=== PATIENT | female | born 1985 | race American Indian/Alaskan Native ===

== ENCOUNTER 2018-07-19 18:28 | Outpatient (CLI) | payer MEDICAID ==
[2018-07-19 19:42] LABS: Bilirubin,Urine NEG (Negative); Blood,Urine NEG (Negative); Color,Urine Straw (Yellow); Protein,Urine <15 mg/dL mg/dL (Negative); Urobilinogen,Urine < 2.0 mg/dL (<2.0)
[2018-07-19 20:00] LABS: Hematocrit 27.3 % (30.3-42.9); Hemoglobin 9.2 gm/dl (10.1-14.3); Mean Corpuscular HGB Conc 34 % (30-34); Mean Corpuscular Volume 81 fl (79-97); Platelet Count 262 K/mm3 (140-440); Red Blood Count 3.39 M/mm3 (3.65-5.03); Red Cell Distribution Width 15.8 % (13.2-15.2)
[2018-07-19] MEDS ORDERED: LACTATED RINGERS 500 ML IV ONE (20:00)
[2018-07-19 20:30] LABS: Alanine Aminotransferase 13 units/L (7-56); Uric Acid 4.5 mg/dL (3.5-7.6)
[2018-07-19 20:41] VITALS: BP 154/84
[2018-07-19] MEDS ORDERED: TYLENOL PO ONE (21:46)
[2018-07-19] MEDS ORDERED: NORMODYNE PO ONE (21:49)
== END 2018-07-19 21:20 | disposition home or self-care (01) ==
LOC: TRG 18:28
PROVIDERS: ATTEND Obstetrics & Gynecology
DX: O47.03 False labor before 37 completed weeks of gestation, third trimester (principal); Z3A.36 36 weeks gestation of pregnancy; Z87.891 Personal history of nicotine dependence
CPT/HCPCS: 36415; 59025; 81001; 82565; 83615; 84450; 84460; 84550; 85027

== ENCOUNTER 2018-08-07 20:13 | Inpatient (IN) | payer MEDICAID ==
[2018-08-07] MEDS ORDERED: CERVIDIL VG ONE (22:39)
[2018-08-07 23:18] LABS: Alanine Aminotransferase 11 units/L (7-56); Uric Acid 4.7 mg/dL (3.5-7.6)
--- NOTE | 2018-08-08 00:06 | History and Physical Report ---
History of Present Illness Date of examination: 08/08/18 Date of admission: 08/07/18 20:13 Chief complaint: Presents from [facility] for a scheduled induction of labor for Gestational HTN. Denies HAs, visual changes, N&V. History of present illness: No records present. States her course was complicated by uterine fibroids and elevated blood pressures starting in her 2nd trimester. Co- managed with [facility]. Past History Past Medical History: no pertinent history Past Surgical History: no surgical history RETANNER History: fibroids Family/Genetic History: diabetes (father and all grandparents), hypertension (father) Social history: single, smoking (states she smoked cigarettes before ) - Obstetrical History Expected Date of Delivery: 08/15/18 Actual Gestation: 39 Week(s) 0 Day(s) : 1 Medications and Allergies Allergies Allergy/AdvReac Type Severity Reaction Status Date / Time No Known Allergies Allergy Verified 07/19/18 18:59 Home Medications Medication Instructions Recorded Confirmed Last Taken Type Amoxicillin/K Clav Tab [Augmentin 1 each PO Q12HR #20 tablet 02/23/15 Unknown Rx 500 MG TAB] Ibuprofen [Motrin 800 MG tab] 800 mg PO Q8HR PRN #30 tablet 02/23/15 Unknown Rx Fexofenadine/Pseudoephedrine 1 each PO Q12H #20 tab.er.12h 08/16/15 Unknown Rx [Paige-D 12 Hour Tablet] Fluticasone [Flonase] 1 spray NS QDAY #1 bottle 08/16/15 Unknown Rx Hydrocortisone [Anucort-HC SUPPOS] 25 mg RC BID #7 supp.rect 08/16/15 Unknown Rx guaiFENesin/CODEINE [Robitussin AC] 5 ml PO Q6HR #120 ml 08/16/15 Unknown Rx Active Meds: Active Medications Labetalol HCl (Normodyne) 300 mg PO BID JOANN Zolpidem Tartrate (Ambien) 10 mg PO QHS PRN PRN Reason: Insomnia Review of Systems All systems: negative - Vital Signs Vital signs: Vital Signs Pulse BP 96 H 144/78 08/07/18 20:44 08/07/18 20:44 Temp Pulse Resp BP Pulse Ox 80 152/87 08/07/18 23:20 08/07/18 23:20 - Physical Exam Breasts: Positive: normal Cardiovascular: Regular rate Lungs: Positive: Clear to auscultation, Normal air movement Abdomen: Positive: normal appearance, soft Genitourinary (Female): Positive: normal external genitalia, normal perenium Anus/Rectum: Positive: normal perianal skin - Obstetrical FHR: category 1 Uterine Contraction Monitor Mode: External Cervical Dilatation: 1 (Intact) Cervical Effacement Percentage: 20 station: -3 Uterine Contraction Pattern: Absent Uterine Tone Measurement Phase: Resting Results Result Diagrams: 08/07/18 22:44 Abnormal lab results 08/07/18 Range/Units 22:44 Creatinine 0.4 L (0.7-1.2) mg/dL All other labs normal. Assessment and Plan A: IUP @ 39 Weeks Category I Tracing Gestational HTN GBS Unknown P: Admit to L&D per Routine Orders Consulted Dr. Younger due to induction without records Dr. Younger recommends: PIH labs, and observation until records are available Labetolol 300mg PO BID Explained to patient and family that I can not proceed induction without documentation Ambien 10mg PO at bedtime
[2018-08-08 00:34] LABS: Hematocrit 29.4 % (30.3-42.9); Hemoglobin 9.5 gm/dl (10.1-14.3); Mean Corpuscular HGB Conc 32 % (30-34); Mean Corpuscular Volume 79 fl (79-97); Platelet Count 280 K/mm3 (140-440); Red Blood Count 3.73 M/mm3 (3.65-5.03); Red Cell Distribution Width 16.5 % (13.2-15.2)
[2018-08-08] MEDS: AMBIEN PO PRN ×2 (01:56→23:55)
[2018-08-08 08:11] LABS: Bacteria,Urine 1+ /HPF (Negative); Bilirubin,Urine NEG (Negative); Blood,Urine SM (Negative); Calcium Oxalate Crystals,Urine 1+; Color,Urine Yellow (Yellow); Mucus,Urine FEW /HPF; Urobilinogen,Urine < 2.0 mg/dL (<2.0)
[2018-08-08] MEDS ORDERED: PITOCin/NS 20 UNIT/1000ML DRIP 20 UNITS/1,000 ML BAG IV SCH (10:00)
[2018-08-08] MEDS ORDERED: PITOCin/NS 30 UNIT/500ML 30 UNITS/500 ML BAG IV SCH ×2 (10:00)
[2018-08-08] MEDS: NORMODYNE PO SCH ×2 (10:57→23:40)
[2018-08-08] MEDS ORDERED: ZOFRAN IV PRN (11:00)
--- NOTE | 2018-08-08 11:13 | Progress Note ---
Assessment and Plan - Patient Problems (1) 39 weeks gestation of Current Visit: Yes Status: Acute Plan to address problem: Admit to labor floor. monitoring. Sonogram for EFW and presentation. FS with sliding scale. Will decide on labor induction after sonogram. (2) Chronic hypertension affecting Current Visit: Yes Status: Acute (3) Diabetes in undelivered Current Visit: Yes Status: Acute (4) Obesity Current Visit: Yes Status: Acute (5) Fibroid Current Visit: Yes Status: Acute (6) Positive GBS test Current Visit: Yes Status: Acute Plan to address problem: For IV antibitics in labor. Subjective - Subjective Date of service: 08/08/18 Principal diagnosis: SIUP at 39 weeks gestation with CHTN Interval history: Patient is a 32 year old , EDC 08/15/18 at 39 weeks gestation who was sent from [facility] for labor induction. She is a patient of [place] who has been co- managed with [facility] for CHTN. She has been on labetolol 300 mg BID. Her GCT was 157 but she did not do the 3-hr GTT. Her HbA1C in 05/2018 was 6.3. She also has uterine fibroids. She denies contractions, fluid leakage or bleeding. She reports good movement. tracing is CAT1 Objective - Vital Signs Vital Signs: Vital Signs - 12hr 08/07/18 08/08/18 08/08/18 23:20 06:52 07:33 Temperature Pulse Rate 80 88 83 Blood Pressure 152/87 157/85 166/80 08/08/18 08/08/18 07:35 11:00 Temperature 97.6 F Pulse Rate 80 Blood Pressure 158/78 - Exam Cardiovascular: Normal S1, Normal S2 Lungs: Clear to auscultation Vulva: both: normal FHR: category 1 Uterine Contraction Monitor Mode: External Cervical Dilatation: 0 Cervical Effacement Percentage: 0 station: floating Uterine Contraction Pattern: Absent Deep Tendon Reflex Grade: Normal +2 - Labs Labs: Abnormal Labs 08/07/18 08/07/18 21:20 22:44 Hgb 9.5 L Hct 29.4 L MCH 25 L RDW 16.5 H Creatinine 0.4 L Laboratory Results - last 24 hr 08/07/18 08/07/18 08/07/18 21:20 21:20 22:44 WBC 8.5 RBC 3.73 Hgb 9.5 L Hct 29.4 L MCV 79 MCH 25 L MCHC 32 RDW 16.5 H Plt Count 280 Creatinine 0.4 L Estimated GFR > 60 Uric Acid 4.7 AST 14 ALT 11 Lactate Dehydrogenase 158 Urine Color Urine Turbidity Urine pH Ur Specific [place] Urine Protein Urine Glucose (UA) Urine Ketones Urine Blood Urine Nitrite Urine Bilirubin Urine Urobilinogen Ur Leukocyte Esterase Urine WBC (Auto) Urine RBC (Auto) U Epithel Cells (Auto) Urine Bacteria (Auto) Calcium Oxalate Crystal Urine Mucus Blood Type A POSITIVE Antibody Screen Negative 08/08/18 07:20 WBC RBC Hgb Hct MCV MCH MCHC RDW Plt Count Creatinine Estimated GFR Uric Acid AST ALT Lactate Dehydrogenase Urine Color Yellow Urine Turbidity Clear Urine pH 6.0 Ur Specific [place] 1.016 Urine Protein 30 mg/dl Urine Glucose (UA) Neg Urine Ketones Neg Urine Blood Sm Urine Nitrite Neg Urine Bilirubin Neg Urine Urobilinogen < 2.0 Ur Leukocyte Esterase Sm Urine WBC (Auto) 5.0 Urine RBC (Auto) 7.0 U Epithel Cells (Auto) 3.0 Urine Bacteria (Auto) 1+ Calcium Oxalate Crystal 1+ Urine Mucus Few Blood Type Antibody Screen
[2018-08-08 11:29] LABS: Hematocrit 30.2 % (30.3-42.9); Hemoglobin 9.7 gm/dl (10.1-14.3); Mean Corpuscular HGB Conc 32 % (30-34); Mean Corpuscular Volume 80 fl (79-97); Platelet Count 258 K/mm3 (140-440); Red Blood Count 3.78 M/mm3 (3.65-5.03); Red Cell Distribution Width 15.9 % (13.2-15.2)
[2018-08-08] MEDS ORDERED: MINERAL OIL PO PRN (11:30)
[2018-08-08 11:46] LABS: Alanine Aminotransferase 11 units/L (7-56); Uric Acid 4.4 mg/dL (3.5-7.6)
[2018-08-08] MEDS ORDERED: PHENERGAN PR PRN (12:00)
[2018-08-08] MEDS ORDERED: BRETHINE SUB-Q PRN (12:00)
[2018-08-08] MEDS ORDERED: XYLOCAINE 2% INFILTRATI NR (12:00)
[2018-08-08] MEDS ORDERED: BRETHINE IVP PRN (12:00)
--- NOTE | 2018-08-08 14:51 | Ultrasound Report ---
OB ULTRASOUND History well being, diabetes. Technique: Transabdominal ultrasound with Doppler interrogation. Gestation: Single Position: Cephalic Heart Rate: 147 BPM BPD: 9.3 cm = 37 w 4 d HC: 34.8 cm = 40 w 3 d AC: 37.2 cm = 41 w 1 d FL: 7.6 cm = 39 w 0 d HC/AC Ratio: 0.94 Cephalic Index: 80.6 Estimated Weight: 3993 grams Clinical age = 39 w 0 d EDC: 08/15/18 US Gest. Age = 39 w 4 d EDC: 08/11/18 IMPRESSION: Viable, single intrauterine as described.
[2018-08-08] MEDS ORDERED: CERVIDIL VG ONE (16:00)
--- NOTE | 2018-08-08 16:58 | Event Note ---
Date: 08/08/18 Patient is a 32 year old who was sent by [facility] for labor induction due to chronic HTN. She is a [place] patient who has been co-managed with [facility]. When she was admitted last night, no records were available to confirm her due date and medical history. She has been on labetolol. Her toxemia labs were normal on admission. Her records were reviewed. She failed her 1-hr GCT but did not do her 3-hr GTT. Her HbA1C was 6.3 in 05/2018. She says that she was never told that she had gestational diabetes. She denied any contractions, fluid leakage or bleeding. She reported good movement. Exam today: Cervix close/50%/-3. Sonogram showed the baby to be 3993 gms, MARILYN 15, VTX. Assessment/Plan: 32 year old at 39 weeks gestation with: 1. CHTN. BP elevated. No signs and symptoms of pre-eclampsia at this time. Will continue labetolol 300 mg PO BID and add norvasc 10 mg QD. If BP becomes unstable or if she develops signs/symptoms of pre-eclampsia, will start magnesium sulfate. Will induce labor with cervidil. 2. Gestational diabetes. POC glucose. Will start sliding scale as needed during labor. 3. monitoring.
[2018-08-09] MEDS: SUBLIMAZE IV PRN ×3 (00:51→08:41)
[2018-08-09] MEDS: LACTATED RINGERS 1,000 ML IV SCH ×3 (03:56→19:28)
--- NOTE | 2018-08-09 07:20 | Event Note ---
Addendum entered and electronically signed by FERNANDO CERDA CNM 08/09/18 07:20: EGA 39 weeks Original Note: Date: 08/09/18 O: cervadil fell out during the night and pitocin started. EFW of the baby on U/S yesterday was paula 8#13 oz. Cervix /-1 Arom clear fluid, IUPC and FSE placed. Pitocin to be increased. CAT I tracing A: PIH, Induction of labor at 40 weeks P; Discussed plan of care. Will see if she progresses but discussed potential need for .
--- NOTE | 2018-08-09 09:25 | Event Note ---
32yo 39 1/7wks induction day #2 for worsening chronic hypertension on medications. BPs 180/100s. Cervix /70/-1. AROM. Discussion with patient about elevated BPs and size of fetus 3993g in primip patient without proven pelvis and Risk of macrosomia, shoulder dystocia in morbidy obese patient therefore recommendation of primary section made. Patient had elevated 1hr OGTT, no mention of 3hr OGTT in chart. Patient agrees with plan for cesection. Plan: 1. Hydralazine 10mg IV now 2. Risks, benefits and alternatives discussed and informed consent signed. 3. Proceed to OR.
[2018-08-09] MEDS ORDERED: REGLAN IV NR (09:30)
[2018-08-09] MEDS ORDERED: BICITRA PO NR (09:30)
[2018-08-09] MEDS ORDERED: PEPCID IV NR (09:30)
[2018-08-09] MEDS ORDERED: ceFAZolin 2 GM in NACL 0.9% 100 ML IV ONE (09:34)
[2018-08-09] MEDS ORDERED: PHENERGAN PR PRN (09:45)
[2018-08-09] MEDS ORDERED: PHENERGAN PO PRN (09:45)
[2018-08-09] MEDS ORDERED: NARCAN 0.4 MG/1 ML IV PRN (09:45)
[2018-08-09] MEDS ORDERED: ZOFRAN IV PRN (09:45)
--- NOTE | 2018-08-09 09:47 | Anesthesia Consultation ---
Anesthesia Consult and Med Hx - Airway Anesthetic Teeth Evaluation: Good ROM Head & Neck: Adequate Mental/Hyoid Distance: Adequate Mallampati Class: Class II Intubation Access Assessment: Probably Good - Pulmonary Exam CTA: Yes - Cardiac Exam Cardiac Exam: RRR - Pre-Operative Health Status ASA Pre-Surgery Classification: ASA2 Proposed Anesthetic Plan: Spinal - Pulmonary Hx Smoking: No Hx Asthma: No COPD: No Hx Pneumonia: No - Cardiovascular System Hx Hypertension: No - Central Nervous System Hx Seizures: No Hx Psychiatric Problems: No - Endocrine Hx Renal Disease: No Hx End Stage Renal Disease: No Hx Hypothyroidism: No Hx Hyperthyroidism: No - Hematic Hx Anemia: Yes Hx Sickle Cell Disease: No - Other Systems Hx Alcohol Use: No
--- NOTE | 2018-08-09 09:48 | Anesthesia Day of Surgery ---
Anesthesia Day of Surgery - Day of Surgery Patient Examined: Yes Patient H&P Reviewed: Yes Patient is NPO: Yes Beta Blockers: Yes Cardiac Clearance: No Pulmonary Clearance: No Mj's Test: N/A
[2018-08-09] MEDS ORDERED: APRESOLINE IV ONE (10:00)
[2018-08-09] MEDS ORDERED: SODIUM CHLORIDE FLUSH SYRINGE 10 ML IV NR (10:00)
[2018-08-09] MEDS ORDERED: ANCEF/STERILE WATER 2 GM/20 ML 2 GM/20 ML SYRINGE IV NR (10:00)
[2018-08-09] MEDS ORDERED: SENSORCAINE/DEXTR 0.75-8.25% INFILTRATI ONE (11:18)
[2018-08-09] MEDS ORDERED: SUBLIMAZE ONE (11:48)
[2018-08-09] MEDS ORDERED: XYLOCAINE 2%/ EPI 1:200,000 INFILTRATI ONE (11:50)
[2018-08-09] MEDS ORDERED: WATER FOR IRRIG STERILE IR ONE (11:50)
[2018-08-09] MEDS ORDERED: NACL 0.9% IR ONE (11:50)
[2018-08-09] MEDS ORDERED: ZOFRAN ONE (11:58)
[2018-08-09] MEDS ORDERED: LACTATED RINGERS 1,000 ML ONE ×2 (12:22→13:03)
[2018-08-09] MEDS ORDERED: ASTRAMORPH PF 10MG/10ML ONE (12:31)
[2018-08-09 15:31] LABS: Hematocrit 27.9 % (30.3-42.9); Hemoglobin 8.9 gm/dl (10.1-14.3)
[2018-08-09] MEDS ORDERED: LANSINOH TP PRN (15:31)
[2018-08-09] MEDS ORDERED: TUCKS PAD TP PRN (15:31)
[2018-08-09] MEDS ORDERED: TYLENOL PO PRN (15:31)
[2018-08-09] MEDS ORDERED: MILK OF MAGNESIA PO PRN (15:31)
[2018-08-09] MEDS ORDERED: PITOCin/NS 20 UNIT/1000ML DRIP 20 UNITS/1,000 ML BAG IV SCH (16:00)
[2018-08-09] MEDS: MYLICON PO PRN (17:02)
[2018-08-09] MEDS: PERCOCET 5/325 PO PRN (17:02)
[2018-08-09] MEDS: TORADOL IV PRN ×2 (17:19→23:26)
--- NOTE | 2018-08-09 20:01 | Operative Report ---
Operative Report Operative Report: PREOP Diagnosis 1. 39 1/7 weeks gestation 2. Failure to progress 3. Uncontrolled chronic hypertension on anti-hypertensives 4. Morbid obesity 5. Large for gestational age 6. Uterine fibroids 7. Anemia of Postop Diagnosis 1. 39 1/7 weeks gestation 2. Failure to progress 3. Uncontrolled chronic hypertension on anti-hypertensives 4. Morbid obesity 5. Pedunculated uterine fibroid - right fundal 5. Intramural uterine fibroid - left fundal Procedure: Primary low-transverse section Findings 1. Viable female in the vertex position, weighing 7lb 7oz, 3380g APGARS 8 at 1 min, 9 at 5 min 2. Nuchal cord x 1 3. 3-4cm uterine fibroid right fundal, near cornua 4. 2-3cm intramural fibroid left fundal, near cornua Surgeon 1. Esther Judge MD Anesthesia: 1. Epidural I/O: EBL: 1000ml (+ 600ml amniotic fluid) UOP: 350ml, clear urine IVF: 2300ml LR Specimens removed: 1. Placenta - to pathology Complications: none Disposition: Patient taken to recovery room in stable condition INDICATIONS: The patient is a 32yo at 39 1/7weeks that was undergoing induction of labor due to worsening chronic hypertension. On labor day #2 she was noted to be 1cm. The estimated weight was 3993g. A discussion with patient concerning progression of labor, uncontrolled blood pressures and suspected large for gestational age fetus was discussed and decision to proceed to primary section was made. The patient was consented and the risks including but not limited to bleeding, infections, injury to surrounding organs, potential injury to mother/infant were discussed. All questions were answered and informed consent signed. PROCEDURE: The patient was taken to the OR in stable condition. Adequate anesthesia was achieved with epidural anesthesia. A guerra catheter was placed. She wore SCDs for DVT prophylaxis. And received Ancef for infection prophylaxis. heart tones were confirmed. Maternal abdomen and pannus was secured with surgical tape to aid in visualization. The patient was prepped and draped in the usual fashion and an additional time out was done. A Pfannestiel incision was made in the skin. The fascia was incised and the incision extended laterally. The superior and inferior aspect of the rectus muscle was dissected off of the fas mesfin. Entry into the peritoneum was achieved. The incision was extended caudally and cranially. An Nba-O retractor was placed abdominally. The bladder flap was created. A low-transverse incision made made in the uterus and extended laterally. membranes were ruptured and noted to be clear. The head was brought to the hysterotomy and body delivered. The was bulb suctioned. The cord was clamped x 2, cut and handed off to awaiting fry cook staff. The placenta was delivered intact and 20 units of IV Pitocin were added to LR fluids. The uterus was cleaned of all clots and visible membranes. The uterus was repaired with 0-Vicryl in a running, locked stitch and an imbricating layer of the same suture was used. The rectus muscle was repaired with 2-0 Vicryl. The fascia was closed with 0 Vicryl. The subcutaneous layer reapproximated with 2-0 Vicryl and the skin closed with 4-0 Vicryl. The patient tolerated the procedure well. All counts were correct x 3. Urine was noted to be clear at close of case. I was present and scrubbed for the entire procedure. The patient was taken to the recovery room in stable condition. Due to the anesthesia reported blood loss of 1600ml a STAT H/H was drawn in the recovery room and was noted to be 02/25 (previous 03/30).
[2018-08-09 21:13] LABS: Bilirubin,Urine NEG (Negative); Blood,Urine LG (Negative); Color,Urine Yellow (Yellow); Hyaline Casts,Urine 1 /LPF; Mucus,Urine 2+ /HPF; Urobilinogen,Urine < 2.0 mg/dL (<2.0)
[2018-08-09 21:14] LABS: RBC,Urine > 182.0 /HPF (0.0-6.0)
[2018-08-09] MEDS: NORMODYNE PO SCH (21:46)
[2018-08-10] MEDS: NORVASC PO SCH (02:09)
[2018-08-10] MEDS ORDERED: BOOSTRIX IM ONE (06:00)
[2018-08-10] MEDS: PERCOCET 5/325 PO PRN ×2 (08:48→20:27)
--- NOTE | 2018-08-10 08:53 | Progress Note ---
Assessment and Plan - Patient Problems (1) Status post Onset Date: 08/10/18 Current Visit: Yes Status: Resolved Plan to address problem: A: S/P C Section - POD #1 Doing well Acute blood loss anemia - stable Chronic hypertension - on Labetolol 300mg BID and Norvasc 10mg QD P: Continue RPOC Anticipate discharge in 24-48hrs (2) Acute blood loss anemia Onset Date: 08/10/18 Current Visit: Yes Status: Resolved (3) Chronic hypertension affecting Onset Date: 08/10/18 Current Visit: Yes Status: Chronic Subjective - Subjective Date of service: 08/10/18 Principal diagnosis: s/p C Section - POD #1 Interval history: Pt is feeling well without complaints. Bleeding improved. Patient reports: appetite normal, voiding normally, pain well controlled, flatus, ambulating normally, no dizzy ambulation, no nauseated : doing well, bottle feeding Objective - Vital Signs Latest vital signs: Vital Signs Temp Pulse Resp BP BP Pulse Ox 08/10/18 08:48 20 08/10/18 08:09 98.7 F 99 H 20 145/79 99 08/10/18 04:14 98.2 F 81 18 123/72 100 08/10/18 02:09 88 151/79 08/10/18 00:03 98.5 F 18 151/79 08/09/18 23:56 20 08/09/18 23:26 20 08/09/18 21:46 82 138/88 08/09/18 19:50 97.3 F L 18 154/88 08/09/18 18:00 80 98 08/09/18 15:00 98.3 F 93 H 20 147/80 08/09/18 14:24 98.1 F 89 14 144/58 100 08/09/18 14:05 89 14 146/80 98 08/09/18 13:50 82 15 138/72 98 08/09/18 13:43 88 14 129/61 98 08/09/18 13:30 91 H 14 119/62 100 08/09/18 13:24 97.7 F 92 H 14 126/59 100 08/09/18 10:12 88 181/95 08/09/18 09:42 78 188/107 08/09/18 09:20 188/107 08/09/18 09:10 77 187/103 Intake and Output 08/09/18 08/10/18 08/10/18 22:59 06:59 14:59 Intake Total 1500 240 Output Total 950 600 400 Balance 550 -360 -400 Intake: IV 1000 Lactated Ringers 1,000 ml 1000 @ 125 mls/hr IV DIRECT JOANN Rx#:[id number] Oral 240 Other 500 Output: Urine 950 600 400 Indwelling Catheter 950 600 Void 400 Other: Intake, Other Source Saline Solution Total, Intake Amount 500 240 Total, Output Amount 950 600 400 # Voids Indwelling Catheter 1 Void 1 # Bowel Movements 0 - Exam Breasts: Present: deferred Abdomen: Present: normal appearance, soft Uterus: Present: normal, firm, fundal height below umbilicus Extremities: Present: normal Incision: Present: normal, dry, intact, dressed - Labs Labs: Abnormal lab results 08/09/18 08/09/18 08/10/18 Range/Units 15:01 21:00 04:37 Hgb 8.9 L 8.0 L (10.1-14.3) gm/dl Hct 27.9 L 24.0 L (30.3-42.9) % Urine WBC (Auto) 14.0 H (0.0-6.0) /HPF Laboratory Tests 08/07/18 08/07/18 08/07/18 21:20 21:20 21:20 WBC 8.5 RBC 3.73 Hgb 9.5 L Hct 29.4 L MCV 79 MCH 25 L MCHC 32 RDW 16.5 H Plt Count 280 Creatinine Estimated GFR POC Glucose Uric Acid AST ALT Lactate Dehydrogenase Urine Color Urine Turbidity Urine pH Ur Specific [place] Urine Protein Urine Glucose (UA) Urine Ketones Urine Blood Urine Nitrite Urine Bilirubin Urine Urobilinogen Ur Leukocyte Esterase Urine WBC (Auto) Urine RBC (Auto) U Epithel Cells (Auto) Urine Bacteria (Auto) Calcium Oxalate Crystal Hyaline Casts Urine Mucus RPR Nonreactive Blood Type A POSITIVE Antibody Screen Negative 08/07/18 08/08/18 08/08/18 22:44 07:20 11:06 WBC 7.0 RBC 3.78 Hgb 9.7 L Hct 30.2 L MCV 80 MCH 26 L MCHC 32 RDW 15.9 H Plt Count 258 Creatinine 0.4 L Estimated GFR > 60 POC Glucose Uric Acid 4.7 AST 14 ALT 11 Lactate Dehydrogenase 158 Urine Color Yellow Urine Turbidity Clear Urine pH 6.0 Ur Specific [place] 1.016 Urine Protein 30 mg/dl Urine Glucose (UA) Neg Urine Ketones Neg Urine Blood Sm Urine Nitrite Neg Urine Bilirubin Neg Urine Urobilinogen < 2.0 Ur Leukocyte Esterase Sm Urine WBC (Auto) 5.0 Urine RBC (Auto) 7.0 U Epithel Cells (Auto) 3.0 Urine Bacteria (Auto) 1+ Calcium Oxalate Crystal 1+ Hyaline Casts Urine Mucus Few RPR Blood Type Antibody Screen 08/08/18 08/09/18 08/09/18 11:06 10:29 15:01 WBC RBC Hgb 8.9 L Hct 27.9 L MCV MCH MCHC RDW Plt Count Creatinine 0.3 L Estimated GFR > 60 POC Glucose 89 Uric Acid 4.4 AST 15 ALT 11 Lactate Dehydrogenase 171 Urine Color Urine Turbidity Urine pH Ur Specific [place] Urine Protein Urine Glucose (UA) Urine Ketones Urine Blood Urine Nitrite Urine Bilirubin Urine Urobilinogen Ur Leukocyte Esterase Urine WBC (Auto) Urine RBC (Auto) U Epithel Cells (Auto) Urine Bacteria (Auto) Calcium Oxalate Crystal Hyaline Casts Urine Mucus RPR Blood Type Antibody Screen 08/09/18 08/10/18 08/10/18 21:00 04:37 10:08 WBC RBC Hgb 8.0 L Hct 24.0 L MCV MCH MCHC RDW Plt Count Creatinine Estimated GFR POC Glucose 121 H Uric Acid AST ALT Lactate Dehydrogenase Urine Color Yellow Urine Turbidity Clear Urine pH 6.0 Ur Specific [place] 1.015 Urine Protein 100 mg/dl Urine Glucose (UA) Neg Urine Ketones 80 Urine Blood Lg Urine Nitrite Neg Urine Bilirubin Neg Urine Urobilinogen < 2.0 Ur Leukocyte Esterase Neg Urine WBC (Auto) 14.0 H Urine RBC (Auto) > 182.0 U Epithel Cells (Auto) Urine Bacteria (Auto) Calcium Oxalate Crystal Hyaline Casts 1 Urine Mucus 2+ RPR Blood Type Antibody Screen
[2018-08-10] MEDS: NORMODYNE PO SCH ×2 (10:27→21:25)
[2018-08-10] MEDS: FEOSOL PO SCH (10:28)
[2018-08-10] MEDS: IBUPROFEN PO PRN ×2 (14:26→23:39)
[2018-08-10] MEDS: MYLICON PO PRN (20:26)
[2018-08-11] MEDS: IBUPROFEN PO PRN ×2 (08:43→17:15)
--- NOTE | 2018-08-11 09:31 | Progress Note ---
Assessment and Plan - Patient Problems (1) Status post Onset Date: 08/10/18 Current Visit: Yes Status: Resolved Plan to address problem: A: S/P C Section - POD #2 Doing well Acute blood loss anemia - stable Chronic hypertension - on Labetolol 300mg BID and Norvasc 10mg QD P: Continue RPOC Anticipate discharge tomorrow (2) Acute blood loss anemia Onset Date: 08/10/18 Current Visit: Yes Status: Resolved (3) Chronic hypertension affecting Onset Date: 08/10/18 Current Visit: Yes Status: Chronic Subjective - Subjective Date of service: 08/11/18 Principal diagnosis: s/p C Section - POD #2 Interval history: Pt is feeling well without complaints. She is tolerating a reg diet without nausea or vomiting, ambulating and voiding without difficulty. Patient reports: appetite normal, voiding normally, pain well controlled, flatus, ambulating normally, no dizzy ambulation, no nauseated : doing well, bottle feeding Objective - Vital Signs Latest vital signs: Vital Signs Temp Pulse Resp BP BP Pulse Ox 08/11/18 07:42 98.0 F 103 H 20 150/89 100 08/11/18 00:00 98.0 F 87 18 138/79 08/10/18 23:39 20 08/10/18 21:25 86 130/80 08/10/18 21:24 18 08/10/18 20:27 20 08/10/18 17:15 98.9 F 97 H 20 136/82 100 08/10/18 11:46 98.1 F 89 20 112/74 96 08/10/18 10:27 99 H 149/99 Intake and Output 08/10/18 08/11/18 08/11/18 22:59 06:59 14:59 Intake Total 240 Balance 240 Intake: Oral 240 Other: Total, Intake Amount 240 # Voids Void 1 1 - Exam Abdomen: Present: normal appearance, soft Uterus: Present: normal, firm, fundal height below umbilicus Extremities: Present: normal Incision: Present: normal, dry, intact - Labs Labs: Abnormal lab results 08/10/18 Range/Units 10:08 POC Glucose 121 H (70-105)
[2018-08-11] MEDS: FEOSOL PO SCH (10:27)
[2018-08-11] MEDS: NORMODYNE PO SCH ×2 (10:29→21:36)
[2018-08-11] MEDS: NORVASC PO SCH (10:30)
[2018-08-11] MEDS ORDERED: AFLURIA QUAD 2018-2019 SYRINGE IM ONE (12:00)
[2018-08-11] MEDS: PERCOCET 5/325 PO PRN ×2 (12:30→21:36)
[2018-08-12] MEDS: IBUPROFEN PO PRN ×2 (02:07→11:16)
[2018-08-12] MEDS: PERCOCET 5/325 PO PRN ×2 (05:30→11:39)
[2018-08-12] MEDS ORDERED: BOOSTRIX IM ONE (06:00)
--- NOTE | 2018-08-12 10:38 | Discharge Summary ---
Providers - Providers Date of Admission: 08/07/18 20:13 Date of discharge: 08/12/18 Attending physician: DUNG GOODEN Primary care physician: DUNG GOODEN Hospitalization Reason for admission: induction of labor, IUP at term Delivery: Procedure: section, primary low transverse Episiotomy: none Laceration: none Incision: normal, dry, intact Other procedures: none complications: none Discharge diagnosis: IUP at term delivered [place] baby: female Hospital course: Pt is a 32yo BF EGA 39 0/7 weeks who presented from [facility] for a scheduled induction of labor due to Gestational HTN. She denied HAs, visual changes, N&V. She received cervidil followed by pitocin without any significant cervical change and therefore was delivered by an uncomplicated C Section by Dr Judge. By POD #2 she was tolerating a reg diet without nausea or vomiting, ambulating and voiding without difficulty, and BP's remained stable on Labetolol 300mg BID and Norvasc 10mg QD. She was therefore discharged to home on POD #3 in stable condition with plans to follow up in the office for BP check in [address] [place], [place] [address]K[place] Condition at discharge: Good Disposition: DC-01 TO HOME OR SELFCARE - Discharge Diagnoses (1) Status post Status: Resolved (2) Acute blood loss anemia Status: Resolved (3) Chronic hypertension affecting Status: Chronic Plan - Discharge Medications Prescriptions: amLODIPine [Norvasc] 10 mg PO QDAY #30 tablet Ferrous Sulfate [Feosol 325 MG tab] 325 mg PO BID 30 Days #60 tablet Ibuprofen [Motrin 800 MG tab] 800 mg PO Q8H PRN #30 tablet PRN Reason: Pain, Mild (1-3) Labetalol [Normodyne TAB] 300 mg PO BID #60 tablet oxyCODONE /ACETAMINOPHEN [Percocet 5/325] 1 tab PO Q4HR PRN 14 Days #30 tab PRN Reason: Pain , Severe (7-10) - Provider Discharge Summary Activity: routine, no sex for 6 weeks, no heavy lifting 4 weeks, no strenuous exercise Diet: routine Instructions: routine Additional instructions: [] Smoking cessation referral if applicable(refer to patient education folder for contact #) [] Refer to [facility] Booklet Call your doctor immediately for: * Fever > 100.5 * Heavy vaginal bleeding ( >1 pad per hour) * Severe persistent headache * Shortness of breath * Reddened, hot, painful area to leg or breast * Drainage or odor from incision. * Keep incision clean and dry at all times and follow doctor's instructions regarding bathing/showering Follow up in office in 1 week for BP check - Follow up plan Follow up: DUNG GOODEN MD [Primary Care Provider] - 7 Days TYREE ALDRIDGE CNM [Advanced Practice Nurse] - 7 Days
[2018-08-12] MEDS: NORVASC PO SCH (11:17)
[2018-08-12] MEDS: FEOSOL PO SCH (11:18)
[2018-08-12 11:27] VITALS: BP 155/100
[2018-08-12] MEDS: NORMODYNE PO SCH (11:28)
== END 2018-08-12 15:45 | disposition home or self-care (01) | DRG 765 ==
LOC: LD 20:13 → OB 08-09 15:51
PROVIDERS: ADMIT Obstetrics & Gynecology; ATTEND Obstetrics & Gynecology
PROC: 10D00Z1 Extraction of Products of Conception, Low, Open Approach (ICD-10-PCS; principal; 2018-08-07)
PROC: 3E0234Z Introduction of Serum, Toxoid and Vaccine into Muscle, Percutaneous Approach (ICD-10-PCS; 2018-08-12)
DX: O13.4 Gestational [pregnancy-induced] hypertension without significant proteinuria, complicating childbirth (principal); D62 Acute posthemorrhagic anemia; O99.214 Obesity complicating childbirth; O10.92 Unspecified pre-existing hypertension complicating childbirth; E66.01 Morbid (severe) obesity due to excess calories; O99.824 Streptococcus B carrier state complicating childbirth; O24.429 Gestational diabetes mellitus in childbirth, unspecified control; O69.81X0 Labor and delivery complicated by cord around neck, without compression, not applicable or unspecified; O34.13 Maternal care for benign tumor of corpus uteri, third trimester; D25.1 Intramural leiomyoma of uterus; Z37.0 Single live birth; Z3A.39 39 weeks gestation of pregnancy; Z71.3 Dietary counseling and surveillance; Z23 Encounter for immunization
CPT/HCPCS: 36415; 59200; 76816; 81001; 82565; 82962; 83615; 84450; 84460; 84550; 85014; 85018; 85027; 86592; 86850; 86900; 86901; 88307; 90471; 90686; 90715; G0378; A6250; G0008; J0360; J0690; J1885; J2274; J2405; J2590; J2765; J3010; J7120